=== PATIENT | male | born 1940 | race Caucasian/White ===

== ENCOUNTER 2017-01-22 19:20 | Emergency (ER) | payer MEDICARE, OTHER ==
[~2017-01-22] VITALS: Ht 190.5 cm; Wt 144.6 kg
[~2017-01-22 19:20] MED LIST: AMLO-39 PO; ASPI-973 PO; ATOR20TA65 PO; BROM2.5T2 PO; CALC1CAP22 PO; CINN500C14 PO; CLOB15GE TOPICAL; FLUO20CA25 PO; FURO40TA4 PO; GABA-500 PO; GABA-502 PO; GLUC-181 PO; INSU100V27 SQ; ISOS30TA4 PO; LEVO112T4 PO; LOSA100T29 PO; MULT-1018 PO; NPH,100V11 SQ; OMEP20CA11 PO; OXYC5TAB72 PO
[2017-01-22 20:22] VITALS: BP 150/62; PULSE 54; RESP 22; O2SAT 95
--- NOTE | 2017-01-22 21:53 | ED.REPORT ---
HPI-Trauma Minor / Fall Date of Service Jan 22, 2017 ED Provider: Jason Coe MD 76 year old male with chronic back pain presents to the ER via EMS due to back pain rated 9/10 in severity status post mechanical ground level fall just prior to arrival. He states that he was walking on an icy surface and slipped, landing on his buttocks. Audible "pops and cracks" from his lumbar area at the time of injury. Patient denies head trauma, LOC, numbness/tingling of the lower extremities, numbness between the legs, and incontinence of urine or bowels. He takes 5mg oxycodone tid. Nursing Notes Stated Complaint: GROUND LEVEL FALL, BACK PAIN Chief Complaint: Multiple Trauma/Fall Nursing Notes Reviewed: Yes Allergies: Coded Allergies: codeine (Verified Allergy, Severe, 01/22/17) cefazolin (Verified Allergy, Unknown, suspected but unclear , 01/22/17) lisinopril (Verified Adverse Reaction, Unknown, 01/22/17) Scheduled Amlodipine (Norvasc) 5 Mg Tablet 5 MG PO DAILY Aspirin (Aspirin) 81 Mg Tablet 81 MG PO DAILY Atorvastatin Calcium (Atorvastatin Calcium) 20 Mg Tablet 20 MG PO HS Bromocriptine Mesylate (Bromocriptine Mesylate) 2.5 Mg Tablet 2.5 MG PO BID Calcium Carbonate/Vitamin D3 (Calcium 600 + Vit D 400 Softgl) 1 Each Capsule 1 EACH PO DAILY Cinnamon Bark (Cinnamon) 500 Mg Capsule 1,000 MG PO DAILY Clobetasol Propionate (Clobetasol Propionate) 15 Gm Gel..gram. 1 APPLIC TOPICAL DAILY Fluoxetine (Fluoxetine) 20 Mg Capsule 20 MG PO DAILY Furosemide (Furosemide) 40 Mg Tablet 40 MG PO DAILY Gabapentin (Gabapentin) 100 Mg Capsule 100 MG PO BID In the evening take dose with a 300mg = 400mg in the evening and 100mg twice a day during the day. Gabapentin (Gabapentin) 300 Mg Capsule 300 MG PO QPM Gluc/Gregory-MSM#1/C/Huey/Joshua/Bor (Osteo Bi-Flex Caplet) 1 Each Tablet 1 EACH PO DAILY Insulin Regular, Human (Novolin-R U100 Insulin Vial) 100 Unit/1 Ml Vial 0 SQ TID Isosorbide MN ER (Isosorbide MN ER) 30 Mg Tab.er.24h 30 MG PO QAM Levothyroxine (Levothyroxine) 112 Mcg Tablet 224 MCG PO QAM Losartan Potassium (Losartan Potassium) 100 Mg Tablet 100 MG PO DAILY Multivitamin (Multi Vitamin Daily) 1 Each Tablet 1 EACH PO DAILY NPH, Human Insulin Isophane (HUMulin-N U100 Insulin Vial) 100 Unit/1 Ml Vial 40 UNIT SQ QPM Omeprazole (Omeprazole) 20 Mg Capsule.dr 20 MG PO DAILY Scheduled PRN oxyCODONE (oxyCODONE) 5 Mg Tablet 5-20 MG PO QID PRN PRN For Pain General Time Seen by MD: 21:49 Chief Complaint Fall, Other (Back Pain) Hx Obtained From: Patient, Spouse Arrived By: Ambulance Onset Occurred: Just prior to arrival Symptom Duration: Since onset Caused by: Accidental, Fall on ground Context: Occurred at: Home injury Location: Back Quality: Painful Severity: Current: Pain level 9 out of 10 Severity: Maximum: Severe Associated with: Denies: Headache, Loss of consciousness, Neck pain, Numb extremities, Syncope, Weak extremity Pertinent Negative: Pt denies other symptoms Similar Sx Previous: Yes Past Medical History Past Medical History DM Depression Hypothyroid HTN Hyperlipidemia Past Surgical History Endoscopy in ~2010 Smoking History Former Smoker Ambulatory Status Independent Review of Systems Musculoskeletal: Reports: Back pain, Lumbar pain, Denies: Extremity pain, Joint pain, Neck pain, Thoracic pain Neurologic: Denies: Change LOC, Focal weakness, Headache, Numbness, Syncope, Weakness Complete sys rev & neg: except as marked. Physical Exam Initial Vital Signs Vital Signs (First) Date Time Temp Pulse Resp B/P Pulse Ox O2 Delivery O2 Flow Rate FiO2 01/22/17 20:22 36.6 54 22 150/62 95 Room Air Initial VS: Reviewed Head / Eyes: Atraumatic, Normocephalic Extremities: Vascular intact, Neuro intact, No swelling, No tenderness Skin: Warm, Dry, No cyanosis General/Constitutional: Awake, Alert, Well developed, Well nourished Neck: Atraumatic, Supple, Full range of motion, No swelling, Non-tender, No midline vertebral tend Back: Full range of motion, No midline vertebral tend Diffuse lateral lower back tenderness, bilaterally. No external trauma. Neurologic: Oriented X3, Speech NL, No motor deficits, No sensory deficits, Cerebellar NL Re-Eval/Medical Decision Med Decision/Clinical Course 76-year-old male history of chronic low back pain and lumbar disc bulge presenting after, will fall onto his buttocks. He reports low back pain. No red flag symptoms. He has no spine tenderness. He has no tenderness whatsoever on exam. Discussed with him and given no tenderness do not believe x-rays are indicated at this time. Recommend he take his home medications for pain. Follow-up with primary doctor. Re-Evaluation/Progress : Time of Eval: 22:00 Re-Evaluation/Progress Note: Discussed physical examination findings and plan to discharge. Patient is amenable to the plan. Return precautions given. All other questions addressed. Counseled Regarding: Diagnosis, Need for follow-up, When/why to return to ED Discharge & Departure Impression: Primary Impression: Lumbosacral strain Disposition: Home Discharge Condition All VS Reviewed: Yes Condition: Stable Additional Instructions: Your workup today was reassuring. I do not believe that there is any dangerous cause for your symptoms at this time. I do not believe that you have a fracture. Take 10mg oxycodone three times daily. Do not consume alcohol or drive while taking oxycodone. Alternate ice/heat packs to control pain. Activity as tolerated, avoid heavy lifting. Call your primary care provider to arrange a follow-up appointment in 1-2 days if symptoms do not improve. Return to the ER if you develop uncontrollable pain, numbness/tingling of your lower extremities, numbness between your legs, weakness, bowel or bladder incontinence, or any other concerning symptoms. Referrals: Eben Powell MD (PCP) Willam Attestation Portions of this note were transcribed by Justus Tam. I, Dr. Coe, personally performed the history, physical exam and medical decision-making; I reviewed and confirmed the accuracy of the information in the transcribed note. Signed by: Willam Purvis, 01/22/2017 - 22:08 copies to: Eben Powell MD, Ben M MD Jan 22, 2017 21:53 JUSTUS TAM Jan 22, 2017 22:08
[2017-01-22 22:17] VITALS: BP 150/62; PULSE 54; RESP 22; O2SAT 95
== END 2017-01-22 22:18 | disposition home or self-care (01) ==
LOC: EDBD 19:20 → SED 19:20
DX: S39.012A Strain of muscle, fascia and tendon of lower back, initial encounter (principal); W00.0XXA Fall on same level due to ice and snow, initial encounter; Y92.008 Other place in unspecified non-institutional (private) residence as the place of occurrence of the external cause; Y93.01 Activity, walking, marching and hiking; Y99.8 Other external cause status; E11.9 Type 2 diabetes mellitus without complications; I10 Essential (primary) hypertension; E78.5 Hyperlipidemia, unspecified; E03.9 Hypothyroidism, unspecified; M51.27 Other intervertebral disc displacement, lumbosacral region; Z87.891 Personal history of nicotine dependence; Z79.4 Long term (current) use of insulin; Z79.82 Long term (current) use of aspirin; Z88.5 Allergy status to narcotic agent; Z88.1 Allergy status to other antibiotic agents; Z88.8 Allergy status to other drugs, medicaments and biological substances